=== PATIENT | male | born 1980 | race Caucasian/White ===

== ENCOUNTER → 2025-01-31 17:36 | Outpatient (CLI) | payer OTHER, SELFPAY ==
[2025-01-31 18:10] LABS: Add Manual Diff / Slide Review NO; Hematocrit 43.8 % (41-53); Hemoglobin 15.2 g/dL (13.5-17.5); Lymphocytes Absolute Auto 1900 /uL (1100-4500); Mean Corpuscular HGB Conc 34.6 % (30-36); Mean Corpuscular Hemoglobin 32.5 PG (26-34); Mean Corpuscular Volume 94.1 fL (80-100); Platelet Count 287 X10^3/uL (150-400)
[2025-01-31 20:23] LABS: Alanine Aminotransferase 82 IU/L (<50); Albumin 4.5 g/dL (3.5-5.0); Albumin Globulin Ratio 1.3 (1.0-2.8); Alkaline Phosphatase 80 U/L (38-126); Blood Urea Nitrogen 12 mg/dL (9-20); Calcium 9.5 mg/dL (8.4-10.2); Carbon Dioxide 26 mmol/L (22-32); Chloride 103 mmol/L (98-107); Estimated Glomerular Filt Rate > 60 mL/min (>60); Globulin 3.4 g/dL (1.7-4.1); Glucose 80 mg/dL (70-99); HEMOLYSIS < 15 (0-50); Potassium 4.5 mmol/L (3.4-5.1); Sodium 142 mmol/L (137-145); Total Protein 7.9 g/dL (6.3-8.2)
[2025-01-31 20:51] LABS: TSH w/ Reflex to FT4 3.48 uIU/mL (0.47-4.68)
== END ==
PROVIDERS: PCP Family Medicine; Referring Provider Nurse Practitioner Family; Visit Provider Nurse Practitioner Family
DX: L29.9 Pruritus, unspecified (principal)
CPT/HCPCS: 36415; 80053; 84443; 85025; 85651; 86140

== ENCOUNTER 2025-03-17 15:28 | Emergency (ER) | payer OTHER, SELFPAY ==
[2025-03-17 15:35] VITALS: BP 140/99; PULSE 87; RESP 18; TEMP 36.7; O2SAT 99; BMI 29.1
--- NOTE | 2025-03-17 15:49 | PC.NURSE ---
Patient upset over the appointment that was cancelled to follow up with PCP, states i'm not normally like this indicating skin and swollen ankles. Attempted to educate on ED process and that concerns he had were noted in triage. Allowed patient to vent to me about situation. Patient states brought in by significant other and that his quality of life is impacted by skin, wants to take prednisone again. Attempted to educate on risks of prednisone, patient states he already heard that from previous provider. Feels like his skin problem wasn't taken seriously because at f/u was better from predinsone. Patient stated I'm not going to wait around here for hours, advised him that there are concerns that should be evaluated by provider sharlene. Was seen walking out of ED after triage. Will wait to [facility] until patient not seen returning after 30 minutes.
--- NOTE | 2025-03-18 07:45 | ED.SKABFB ---
HPI - Skin/Abscess/Foreign Bdy General Chief complaint: Skin/Abscess/Foreign Body Stated complaint: Skin has burning sensation, getting worse 4 months Time Seen by Provider: 03/17/25 16:29 Source: patient Mode of arrival: Ambulatory Related Data Previous Rx's ?Medication ?Instructions ?Recorded triamcinolone acetonide 0.5 % 1 applic topical TID #15 grams 01/31/25 topical ointment losartan 25 mg tablet 25 mg PO DAILY #90 tabs 02/05/25 prednisone 20 mg tablet 10 mg (1/2 x 20 mg) PO DAILY #7 02/07/25 tabs Allergies Allergy/AdvReac Type Severity Reaction Status Date / Time Penicillins Allergy Unknown Verified 03/17/25 15:35 Patient History Medical History (Updated 03/17/25 @ 16:30 by Chayito Mabry RN) Elevated blood pressure reading without diagnosis of hypertension Eczema Social History Smoking Status: Never smoker Smoking Status: Never smoker Exam Initial Vital Signs Initial Vital Signs: Vital Signs Temperature 98.1 F 03/17/25 15:35 Pulse Rate 87 03/17/25 15:35 Respiratory Rate 18 03/17/25 15:35 Blood Pressure 140/99 H 03/17/25 15:35 Pulse Oximetry 99 03/17/25 15:35 Oxygen Delivery Method Room Air 03/17/25 15:35 Discharge Plan Departure Patient Disposition: Left Without Being Seen Clinical Impression: Patient left without being seen Prescriptions: No Action triamcinolone acetonide 0.5 % ointment 1 applic topical TID Qty: 15 0RF losartan 25 mg tablet 25 mg PO DAILY Qty: 90 0RF prednisone 20 mg tablet 10 mg PO DAILY Qty: 7 0RF
== END 2025-03-17 16:30 | disposition left against medical advice (07) ==
PROVIDERS: Emergency Provider Family Medicine; PCP Family Medicine
DX: Z53.21 Procedure and treatment not carried out due to patient leaving prior to being seen by health care provider (principal)
CPT/HCPCS: 99281